=== PATIENT | male | born 1945 | race Caucasian/White ===

== ENCOUNTER 2023-08-22 12:31 | Emergency (ER) | payer MEDICARE, SELFPAY ==
--- NOTE | 2023-08-22 12:30 | RAD_ITS ---
STUDY: X-RAY CHEST REASON FOR EXAM: Male, 77 years old. Trauma TECHNIQUE: Single AP portable view of the chest. COMPARISON: None. FINDINGS: EKG electrodes are seen. The lungs are clear and expanded. There is no demonstrated pleural abnormality. There is mild cardiac enlargement. Normal mediastinum and katie. Normal visualized pulmonary arteries. Normal visualized aortic arch and descending thoracic aorta. There is a dextroscoliosis of the thoracic spine. Normal visualized ribs, clavicles, and shoulders. There is no demonstrated abnormality of the visualized soft tissue structures of the upper abdomen. RAD/Chest 1 View (Portable) IMPRESSION: Mild cardiomegaly. Lungs are clear. Electronically Signed: Jose Garcia MD at 13:02 EDT ,
[2023-08-22 12:32] VITALS: BP 152/75; PULSE 72; RESP 18; TEMP 36.6; O2SAT 99; BMI 26.0
--- NOTE | 2023-08-22 12:35 | CT_ITS ---
STUDY: CT BRAIN WITHOUT CONTRAST REASON FOR EXAM: Male, 77 years old. Fall down the stairs. RADIATION DOSAGE (If Supplied By Facility): CTDIvol = ( 44.99 ) mGy, DLP = ( 931.09 ) mGycm TECHNIQUE: Transaxial CT imaging of the brain was performed without administration of intravenous contrast material. Individualized dose optimization techniques were used for this CT. COMPARISON: No relevant priors. FINDINGS: Small scalp hematoma overlying the posterior superior left parietal occipital bone. Normal calvarium. There is mild cerebral atrophy with widening of the extra-axial spaces and ventricular dilatation. There are areas of decreased attenuation within the white matter tracts of the supratentorial brain, consistent with microvascular disease changes. Normal basal ganglia and thalami. Normal brainstem. Normal cerebellum. There is no intracranial hemorrhage. There are no findings of an acute ischemic infarction. Atherosclerotic calcific plaques of the cavernous portions of the internal carotid arteries bilaterally. Mucosal thickening of the sphenoid sinus more prominent on the left side. CT/Brain/Head without Contrast IMPRESSION: Chronic involutional changes of the brain. Small scalp hematoma overlying the posterior superior left parieto-occipital bone. Electronically Signed: Jose Garcia MD at 13:39 EDT ,
--- NOTE | 2023-08-22 12:35 | CT_ITS ---
STUDY: CT CHEST, ABDOMEN T PELVIS WITH CONTRAST REASON FOR EXAM: Male, 77 years old. Fall flight of steps, chest deformity, altered level of conscious. RADIATION DOSAGE (If Supplied By Facility): CTDIvol = ( 15.48 ) mGy, DLP = ( 1303.43 ) mGycm TECHNIQUE: Transaxial imaging was performed following intravenous administration of ISOVUE 300-100ml. Multiplanar coronal and sagittal images were reformatted. Individualized dose optimization techniques were used for this CT. COMPARISON: No relevant priors. FINDINGS: CHEST There is a 6.6 mm calcified granuloma in the left lung apex. Increased linear markings at the lung bases suggestive of scarring. Minimal right pleural thickening. There is no demonstrated pleural abnormality. There are calcifications of the coronary arteries. Normal mediastinum. Normal hilar regions. Normal unenhanced pulmonary arteries. Normal aorta arch and descending thoracic aorta. There are multi-level degenerative changes of the thoracic spine. Marked degree of dextroconvex scoliosis. Small hiatal hernia. ABDOMEN Normal liver. Findings suggestive of small gallstones along the dependent portion of the gallbladder lumen. Normal spleen. There are pancreatic calcifications in the distribution of the ducts consistent with chronic pancreatitis. Diffuse pancreatic atrophy. Normal bilateral adrenal glands. Normal right kidney. Normal left kidney. Normal visualized stomach. Normal small intestine. There are multiple colonic diverticula consistent with diverticulosis. There is non-visualization of the appendix. Normal abdominal aorta. Normal inferior vena cava. Normal retroperitoneum. There is a right-sided inguinal hernia containing adipose tissue. There are diffuse degenerative changes of the visualized lumbar spine. Levo convexed scoliosis of the lumbar spine. PELVIS Distended urinary bladder. Prostatic enlargement. The prostate measures 4.3 cm x 5.7 cm. There is no pelvic fluid. There is no pelvic lymphadenopathy or mass lesion. There is diffuse atherosclerotic calcification of the pelvic arteries. CT/CT Chest, Abd, Pel w/Contrast IMPRESSION: Linear scarring at the lung bases. Dextro scoliosis of the thoracic and levoscoliosis of the lumbar spines. Diffuse pancreatic calcifications and diffuse pancreatic atrophy. Small gallstones in the gallbladder lumen. Electronically Signed: Jose Garcia MD at 13:58 EDT ,
--- NOTE | 2023-08-22 12:35 | CT_ITS ---
STUDY: CT CERVICAL SPINE WITHOUT CONTRAST REASON FOR EXAM: Male, 77 years old. Trauma. Patient fell down the stairs. RADIATION DOSAGE (If Supplied By Facility): CTDIvol = ( 21.58 ) mGy, DLP = ( 413.51 ) mGycm TECHNIQUE: High resolution transaxial imaging was performed without contrast material. Sagittal and coronal images were reconstructed. Individualized dose optimization techniques were used for this CT. COMPARISON: None FINDINGS: Normal craniovertebral junction. There are degenerative changes of the anterior atlantoaxial articulation. Normal odontoid process. Normal cervical lordosis. Normal vertebral bodies and posterior osseous elements. C2-3: Normal endplates. Normal disc height and morphology. Normal central canal and intervertebral neuroforamina. C3-4: Mild degree of disc space narrowing. Facet joint osteoarthritis. C4-5: Mild degree of disc space narrowing. Facet joint osteoarthritis and hypertrophy worse on the right side. No significant neural foraminal stenosis is seen. C5-6: Moderate degree of disc space narrowing. Spondylosis. Uncovertebral arthrosis. Moderate degree of bilateral neural foraminal stenosis. C6-7: Minimal anterior listhesis of C6 on C7 most likely secondary to facet joint osteoarthritis. C7-T1: Normal endplates. Normal disc height and morphology. Normal central canal and intervertebral neuroforamina. Atherosclerotic plaque formation of the carotid bifurcations. CT/Spine Cervical without Contras IMPRESSION: Multilevel degenerative changes, as described above. Electronically Signed: Jose Garcia MD at 13:47 EDT ,
--- NOTE | 2023-08-22 12:40 | EX.ED.CRITCA ---
HPI History of Present Illness Chief Complaint: Fall Detail of Chief Complaint: Founded by flight of steps Informant: EMS Limited: other (Closed head injury) Onset/Context/Timing Onset: - (Unknown) Context: Sudden Onset (Presumed) Timing: Continuous (Presumed) Quality: Patient was found at the bottom of steps. Location: Bottom flight of steps Worsened by: Unknown Relieved by: Apparently nothing Associated Symptoms Length of loss of consciousness: Unknown Narrative Narrative: Patient is a 77-year-old male with history hypertension, hyperlipidemia, stage III kidney disease, congestive heart failure, ischemic cardiomyopathy, hypertensive heart and kidney disease with chronic systolic congestive heart failure and type 2 diabetes. Squad states his blood sugar was 59. They gave D10 per protocol. Blood sugar was 91. Will reassess. Patient at times peers to have a D decerebrate posturing however he is awake. When he has not if he felt okay he states he was trying to get up. Patient's level of consciousness waxes and wanes. Prior similar symptoms: No Recent Illness/Hospitalization: No PFSH PFSH Medical History unable to obtain unable to obtain (Documents from outside facility reviewed.) Home Medications hydrocodone-acetaminophen 5-325mg 5mg-325mg 1 tab PO Q6H PRN PRN Pain 3 days #10 TABLETS 08/22/23 [Rx Last Taken Unknown] Allergy/AdvReac Type Severity Reaction Status Date / Time No Known Allergies Allergy Verified 08/22/23 12:39 Surgical History unable to obtain unable to obtain Social History (Updated 08/22/23 @ 12:[address] Luis Alberto Delarosa MD) household members: spouse Smoking Status: Never smoker ROS ROS ED Review of Systems ROS Unobtainable: due to mental status and other Details: Patient voices no complaints. He is not cooperative. He is unable to answer simple questions. He does not know his age, month where he is at. EXAM Physical Exam Const Vital Signs: 08/22/23 12:32 Temperature 97.9 F Temperature Source Temporal Pulse Rate 72 Respiratory Rate 18 Blood Pressure 152/75 H Blood Pressure Mean 100 Pulse Ox 99 Oxygen Delivery Method Room Air Positive well nourished and well developed General Appearance ED: well developed and NAD; Negative for pallor HEENT HEENT Narrative: Patient has a large area of avulsed skin left parietal area. There is no CSF otorrhea or rhinorrhea. There is no septal deviation hematoma. There is negative menon sign or raccoon sign. Eyes Eyes Narrative: Pupils are pinpoint. There is no nystagmus. There is no subconjunctival hemorrhage. There is no step-off with palpation of the infraorbital rim. Patient is able to open his mouth. Neck Neck Narrative: Unable to assess for neck tenderness because of his altered mental status since it wax and wanes. He is unreliable. He was placed in a collar. Resp Resp Narrative: Patient appears to have deformity of his chest. It was determined that he has significant scoliosis of the thoracic spine and probable reason for his chest deformity. Breath sounds were noted bilaterally. Cardio regular rate, regular rhythm, S1 normal heart sound, S2 normal heart sound and no murmurs GI non-distended and no masses GI Narrative: There is no palpable pulse mass. Auscultation: hypoactive bowel sounds Palpation: soft Extremity Extremity Narrative: There is no neurovascular compromise. Neuro No oriented x3 and CN's II-XII intact bilaterally Sensorium / Orientation: oriented to person; Negative for alert, oriented to place or oriented to time Speech: speech normal Gait (Neuro): Negative for normal gait Psych Psych Narrative: Unable to assess. Skin Skin Narrative: Avulsed tissue scalp General Skin Exam: Negative for jaundice or pallor Trauma: abrasion MDM MDM MDM Narrative Medical decision making narrative: Patient is a trauma work-up since he was found at the bottom of a flight of steps. With altered mental status he will need to be transferred to a trauma center. Will obtain CT of the head neck chest, abdomen and pelvis. Appropriate blood work was ordered. We will update his tetanus. There are no prior labs or records available at [facility]. Records were obtained through the [facility]. Patient is on oral hypoglycemics as well as insulin. Lab Data Attestation: I reviewed the patient's lab results. Lab results narrative: CBC reveals mild anemia. Indices are normal. Electrolyte panel reveals elevated BUN and creatinine at 39 and 1.44. Patient history of stage III chronic kidney disease. BUN to creatinine ratio is elevated 27-1. You call. Call is not detected Labs: Laboratory Results - last 24 hr 08/22/23 08/22/23 12:43 13:35 WBC 7.5 RBC 4.50 L Hgb 12.8 L Hct 40.4 MCV 89.8 MCH 28.4 MCHC 31.7 L RDW Std Deviation 48.8 H RDW Coeff of Hipolito 14.7 H Plt Count 167 MPV 10.5 Immature Gran % (Auto) 0.500 Neut % (Auto) 64.6 Lymph % (Auto) 18.6 L George % (Auto) 12.3 H Eos % (Auto) 3.3 Baso % (Auto) 0.7 Absolute Neuts (auto) 4.9 Absolute Lymphs (auto) 1.40 Nucleated RBC % 0 PT 13.8 INR 1.1 APTT 26.3 Sodium 140 Potassium 4.2 Chloride 112 H Carbon Dioxide 26.0 Anion Gap 2 L BUN 39 H Creatinine 1.44 H Estim Creat Clear Calc 37.54 Est GFR (MDRD) Af Amer 61 Est GFR (MDRD) Non-Af 50 L BUN/Creatinine Ratio 27.1 H Glucose 91 Calcium 8.2 L Total Bilirubin 0.40 Direct Bilirubin 0.12 AST 22 ALT 48 Alkaline Phosphatase 82 Total Protein 6.4 Albumin 3.2 Globulin 3.2 Urine Color Straw Urine Clarity Clear Urine pH 6.5 Ur Specific [place] 1.010 Urine Protein 30 H Urine Glucose (UA) 50 H Urine Ketones Negative Urine Occult Blood 50 H Urine Nitrite Negative Urine Bilirubin Negative Urine Urobilinogen Normal Ur Leukocyte Esterase Negative Urine RBC 0 SEEN Urine WBC 0 SEEN Ur Squamous Epith Cells 0 SEEN Urine Bacteria 0 SEEN Urine Mucus 0 SEEN Urine Opiates Screen NEGATIVE Urine Methadone Screen NEGATIVE Ur Barbiturates Screen NEGATIVE Ur Phencyclidine Scrn NEGATIVE Ur Amphetamines Screen NEGATIVE MDMA (Ecstasy) Screen NEGATIVE U Benzodiazepines Scrn NEGATIVE Urine Cocaine Screen NEGATIVE U Cannabinoids Screen NEGATIVE Ur Drug Screen Comment Ethyl Alcohol < 3.0 Radiography Chest X-Ray - ED: 1 View and Read by ED Physician (No acute findings. There is mild cardiomegaly. Cardiac silhouette is normal. Lung parenchyma is unremarkable. There is no widening the mediastinum. There is no evidence of pneumothorax or hemothorax. This was obtained prior to patient going to the CT radiology suite for imaging of his head, ne) Diagnostic Testing: Clinical Impression(s) from Imaging Studies Chest X-Ray 08/22/23 12:30 IMPRESSION: Mild cardiomegaly. Lungs are clear. Electronically Signed: Jose Garcia MD at 13:02 EDT , Brain CT 08/22/23 12:35 IMPRESSION: Chronic involutional changes of the brain. Small scalp hematoma overlying the posterior superior left parieto-occipital bone. Electronically Signed: Jose Garcia MD at 13:39 EDT , Cervical Spine CT 08/22/23 12:35 IMPRESSION: Multilevel degenerative changes, as described above. Electronically Signed: Jose Garcia MD at 13:47 EDT , Chest/Abdomen/Pelvis CT 08/22/23 12:35 IMPRESSION: Linear scarring at the lung bases. Dextro scoliosis of the thoracic and levoscoliosis of the lumbar spines. Diffuse pancreatic calcifications and diffuse pancreatic atrophy. Small gallstones in the gallbladder lumen. Electronically Signed: Jose Garcia MD at 13:58 EDT , CT report of the head, C-spine chest abdomen pelvis was reviewed. Patient has no acute findings other than a small scalp hematoma overlying the posterior superior left parietal occipital area. The C-spine portion reveals multiple degenerative changes. The CT of the abdomen pelvis and chest reveals evidence of cholelithiasis and calcification of the pancreas suggestive of chronic Treatment and Re-Evaluation Narrative: Patient was reassessed at 1447. Patient has a large skin avulsion scalp. He is alert oriented. He is cooperative. He would like to go home. Since his work-up is negative and he is back to baseline he will be discharged to home. We will have nurse clean wound and he will be discharged to home with appropriate home-going instructions. Discharge Plan Triage Chief Complaint: Fall ED Provider: Luis Alberto Delarosa Dx/Rx/DC Orders Clinical Impression: Abdominal wall contusion, Acute cervical myofascial strain, Fall down stairs, Concussion with loss of consciousness <= 30 min, Scalp avulsion, Chest wall contusion Instructions: ED Head Injury (Adult), ED Neck Sprain or Strain, ED Skin Avulsion Prescriptions: New hydrocodone-acetaminophen [hydrocodone-acetaminophen] 5-325 mg tablet 1 tab PO Q6H PRN PRN (Reason: Pain) 3 Days Qty: 10 0RF Primary Care Provider: Richard Wilhelm Referrals: Richard Wilhelm MD [Primary Care Provider] - 3-5 Days Activity Restrictions/Additional Instructions: 1. Clean wound 3 times a day then apply bacitracin ointment 2. You will be sore and you will hurt in many places over the next 24 to 48 hours Disposition Disposition: Home, Self Care
[2023-08-22] MEDS: Diphth,Pertuss(Acell),Tet Vac 0.5 ML Vial IM (12:55)
[2023-08-22] MEDS: Ondansetron 4 MG/2 ML Vial IV (12:55)
[2023-08-22 13:01] LABS: Absolute Neutrophil Count 4.9 X10^3/uL (2.0-7.7); Basophil# 0.05 X10^3/uL; Basophil% 0.7 % (0-1); Eosinophil# 0.25 X10^3/uL; Eosinophils% 3.3 % (0-5); Hematocrit 40.4 % (40-54); Hemoglobin 12.8 g/dL (13.0-16.5); Lymphocyte % 18.6 % (19-41); Mean Corp Hgb Conc 31.7 g/dL (32-36); Mean Corpuscular Hgb 28.4 pg (27.0-32.0); Mean Corpuscular Volume 89.8 fL (80-94); Mean Platelet Vol. 10.5 fl (6.2-12.0); Monocyte# 0.92 X10^3/uL; Monocyte% 12.3 % (0-10); NRBC Flagged by Analyzer 0 % (0-5); Neutrophil # 4.85 X10^3/uL (2.7-7.7); Neutrophil % 64.6 % (47-70); Platelet Count 167 K/mm3 (150-450); RBC Distribution Width CV 14.7 % (11.6-14.6); RBC Distribution Width SD 48.8 fl (35.1-43.9); White Blood Count 7.5 K/mm3 (4.4-11.0)
[2023-08-22 13:04] LABS: International Normalized Ratio 1.1; Prothrombin Time (Protime)PT. 13.8 SECONDS (11.7-14.9)
[2023-08-22 13:06] LABS: Partial Thromboplast Time 26.3 Seconds (24.1-36.2)
[2023-08-22 13:07] LABS: Alcohol, Blood (Medical)-Serum < 3.0 mg/dL
[2023-08-22 13:13] LABS: AST(SGOT) 22 U/L (15-37); Alanine Aminotransfer ALT/SGPT 48 U/L (16-61); Albumin, Serum 3.2 g/dL (3.2-5.0); Alkaline Phosphatase 82 U/L (45-117); Anion Gap 2 (5-15); BUN 39 mg/dL (7-18); BUN/Creat Ratio 27.1 RATIO (10-20); Bilirubin, Direct 0.12 mg/dL (0.00-0.30); Calcium,Total 8.2 mg/dL (8.5-10.1); Chloride 112 mmol/L (98-107); Creatinine, Serum 1.44 mg/dL (0.70-1.30); EST Glomerular Filtration Rate 50 mL/min (>60); Est Glom Filt Rate - Afr Amer 61 mL/min (>60); Estimated Creatinine Clearance 37.54 ml/min; Globulin 3.2 g/dL (2.2-4.2); Glucose 91 mg/dL (74-106); Potassium 4.2 mmol/L (3.5-5.1); Protein, Total 6.4 g/dL (6.4-8.2); Sodium Level 140 mmol/L (136-145)
[2023-08-22 13:45] LABS: Bacteria 0 SEEN /hpf (None Seen); Mucous, Urine 0 SEEN /hpf (<or=2+); Red Blood Cells-Urine 0 SEEN /hpf (0-5); Squamous Epithelial Cells - UA 0 SEEN /hpf (0-5); White Blood Cells 0 SEEN /hpf (0-5)
[2023-08-22 13:47] LABS: Color, Urine Straw (Yellow); Glucose, Dipstick 50 mg/dl (Normal); Ketone-Dipstick Negative (Negative); Leukocyte Esterase-Dipstick Negative /ul (Negative); Nitrite-Dipstick Negative (Negative); Occult Blood-Urine 50 /ul (Negative); Protein-Dipstick 30 mg/dl (Negative); Urine Bilirubin Dipstick Negative (Negative); Urine Clarity Clear (Clear); Urine Urobilinogen Normal (Normal); Urine pH 6.5 (5.0 - 8.0)
[2023-08-22 14:11] LABS: Amphetamine Urine VISTA NEGATIVE (<1000 ng/mL); Barbiturate Urine VISTA NEGATIVE (< 200 ng/mL); Benzodiazepine Urine VISTA NEGATIVE (< 200 ng/mL); Cocaine Urine VISTA NEGATIVE (< 300 ng/mL); Ecstacy Urine VISTA NEGATIVE (< 500 ng/mL); Methadone Urine VISTA NEGATIVE (< 300 ng/mL); PCP Urine VISTA NEGATIVE (< 25 ng/mL); THC Urine VISTA NEGATIVE (< 50 ng/mL); Vista UDS pH Range 7
[2023-08-22] MEDS: Morphine 4 MG/ML Syringe IV (14:37)
[2023-08-28 09:00] LABS: Bedside Glucose 118 mg/dL (74-106)
== END 2023-08-22 15:27 | disposition home or self-care (01) ==
PROVIDERS: Emergency Provider Emergency Medicine; PCP Family Medicine; Visit Provider Emergency Medicine
DX: S06.0X1A Concussion with loss of consciousness of 30 minutes or less, initial encounter (principal); I13.0 Hypertensive heart and chronic kidney disease with heart failure and stage 1 through stage 4 chronic kidney disease, or unspecified chronic kidney disease; I50.22 Chronic systolic (congestive) heart failure; E11.22 Type 2 diabetes mellitus with diabetic chronic kidney disease; N18.30 Chronic kidney disease, stage 3 unspecified; S30.1XXA Contusion of abdominal wall, initial encounter; S16.1XXA Strain of muscle, fascia and tendon at neck level, initial encounter; S20.20XA Contusion of thorax, unspecified, initial encounter; S08.0XXA Avulsion of scalp, initial encounter; R41.82 Altered mental status, unspecified; W10.9XXA Fall (on) (from) unspecified stairs and steps, initial encounter; Z23 Encounter for immunization
CPT/HCPCS: 70450; 71045; 71260; 72125; 74177; 80048; 80076; 80307; 81001; 82077; 82962; 85025; 85610; 85730; 90471; 90715; 93005; 96374; 96375; 99285; Q9967; J2405